=== PATIENT | male | born 1950 | race Caucasian/White ===

== ENCOUNTER 2017-08-13 14:42 | Emergency (ER) | payer MEDICAID ==
--- NOTE | 2017-08-13 16:27 | ED Physician Chart ---
ED Chief Complaint/HPI - Patient Information Date Seen:: 08/13/17 Time Seen:: 16:05 Chief Complaint:: pain right shoulder, right wrist and hand, neck, right buttocks, right knee History of Present Illness:: Patient tripped on a roof falling on the right side of his body. Patient is left-hand dominant. Allergies:: Allergies Allergy/AdvReac Type Severity Reaction Status Date / Time No Known Allergies Allergy Verified 08/13/17 15:24 Vitals:: Vital Signs - 8 hr 08/13/17 15:24 Temp 98.2 F HR 111 RR 18 BP 139/85 O2 Sat % 95 Historian:: Patient Review:: Nurse's Note Reviewed ED Review of Systems - Review of Systems General/Constitutional: No fever Skin: Skin lesions Head: Headache Eyes: No loss of vision ENT: No earache Neck: Neck pain Cardio Vascular: Chest pain Pulmonary: No SOB GI: No nausea, No vomiting G/U: No dysuria Musculoskeletal: Bone or joint pain, Back pain Endocrine: No polyuria, No polydipsia Psychiatric: No prior psych history Hematopoietic: No bruising Allergic/Immuno: No urticaria Neurological: No syncope, No focal symptoms ED Past Medical History - Past Medical History Past Medical History: HTN Family History: Heart disease Social History: Smoker, No Alcohol, Other (smokes 5-6 cigarettes a day; formerly drank alcohol) Surgical History: other (vasectomy) Psychiatricy History: None Medication: None Family Medical History - Family Member Father Hx Family Hypertension: Yes ED Physical Exam - Physical Examination General/Constitutional: Well-developed, well-nourished, Alert Head: Atraumatic Eyes: Lids, conjuctiva normal, PERRL Other Skin comments:: About 2 mm abrasion right palm ENMT: External ears, nose nl, TM canals nl, Nasal exam nl, Lips, teeth, gums nl , Oropharynx nl, Tonsils nl Neck: No nuchal rigidity Respiratory: Nl effort/Exclusion, Clear to Auscultation Other Respiratory comments:: Tenderness right chest wall adjacent to anterior aspect of right shoulder Cardio Vascular: RRR GI: No tenderness/rebounding/guarding : No CVA tenderness Other Extremities comments:: Right elbow: Tenderness right olecranon process. Tenderness right buttocks. Right knee: Full range of motion; tenderness medial and lateral joint lines and over the head of fibula; no to minimal swelling, right wrist: Tenderness of the dorsum. Right hand: Tenderness of palm ED Labs/Radiology/EKG Results - Lab Results Comments:: X-ray right knee showed arthritis. No fractures noted on any of the x-rays ED Septic Shock - . Is Septic Shock (SBP<90, OR Lactate>4 mmol\L) present?: No - <6hrs of presentation: Vital Signs: Vital Signs - 8 hr //17 15:24 Temp 98.2 F HR 111 RR 18 BP 139/85 O2 Sat % 95 ED Reassessment (Disposition) - Reassessment Reassessment Condition:: Unchanged - Diagnosis Diagnosis:: Multiple contusions - Aftercare/Follow up Instructions Aftercare/Follow-Up Instructions:: Refer to Discharge Instructions - Patient Disposition Discharge/Transfer:: Home Condition at Disposition:: Stable, Unchanged ED Discharge Plan - Patient Disposition Additional Instructions: TOLERATED.
--- NOTE | 2017-08-14 07:06 | Diagnostic Imaging Report ---
Chest x-ray single view History: Trauma Comparison: None The heart size is normal. No focal pulmonary parenchymal processes. No hilar or mediastinal abnormalities. Impression: No acute abnormalities
--- NOTE | 2017-08-14 08:07 | Diagnostic Imaging Report ---
Exam: Frontal examination of pelvis. HISTORY: Trauma. Findings: Frontal examination of pelvis single view was reviewed. The study demonstrates no evidence of fracture dislocation. The sacroiliac joints, hip joints and pubic symphysis are intact. IMPRESSION: Normal frontal examination of pelvis.
--- NOTE | 2017-08-14 08:08 | Diagnostic Imaging Report ---
Exam: Right knee joint. HISTORY: Trauma. Findings: Multiple views of the right knee joint reviewed. The study demonstrates degenerative changes of right knee joint with joint space narrowing and mild osteophytic spurring. Flattening of tibial plateau is noted. The patella is intact there is no evidence for joint effusion. If ligamentous or meniscal injury suspected MRI examination of the right knee joint might be helpful. IMPRESSION: Mild osteoarthritic changes right knee joint.
--- NOTE | 2017-08-14 08:09 | Diagnostic Imaging Report ---
Exam: Right elbow HISTORY: Injury Findings: Multiple views of right elbow joint reviewed. The study demonstrates no evidence of fracture dislocation or joint effusion. The radial head is intact. IMPRESSION: Normal examination right elbow joint.
--- NOTE | 2017-08-14 08:10 | Diagnostic Imaging Report ---
Exam: HISTORY: Findings: Multiple views of the right hand reviewed. The study demonstrates no evidence of fracture, dislocation or soft tissue swelling. The radiocarpal joint is intact. IMPRESSION: Normal examination right hand.
== END 2017-08-13 17:26 | disposition home or self-care (01) ==
LOC: ER 14:42
DX: S40.011A Contusion of right shoulder, initial encounter (principal); S30.0XXA Contusion of lower back and pelvis, initial encounter; S80.01XA Contusion of right knee, initial encounter; S60.211A Contusion of right wrist, initial encounter; I10 Essential (primary) hypertension; F17.210 Nicotine dependence, cigarettes, uncomplicated; W01.0XXA Fall on same level from slipping, tripping and stumbling without subsequent striking against object, initial encounter; Y93.89 Activity, other specified; Y92.89 Other specified places as the place of occurrence of the external cause; Y99.8 Other external cause status
CPT/HCPCS: 99284; 96372; 71010; 72170; 73070; 73120; 73560; J1885; Z7502